=== PATIENT | female | born 1995 | race Caucasian/White ===

== ENCOUNTER 2024-08-25 22:09 | Emergency (ER) | payer SELFPAY ==
[2024-08-25 22:13] VITALS: BP 117/67
[2024-08-25 22:40] LABS: % Basophils 0.3 % (0-2); % Eosinophils 0.7 % (0-6); % Immature Granulocytes 0.2 % (0-0.5); % Monocytes 7.8 % (1.7-9.3); Absolute Eosinophils 0.1 10^3/uL (0-0.7); Absolute Monocytes 0.9 10^3/uL (0.1-0.6); Absolute Neutrophils 7.9 10^3/uL (1.4-6.5); Hematocrit 36.3 % (37.0-47.0); Hemoglobin 12.7 g/dL (12.0-16.0); Mean Corpuscular Hgb 31.8 pg (27.0-31.0); Mean Corpuscular Volume 90.8 fL (81.0-99.0); Mean Platelet Volume 8.9 fL (7.4-10.4); Nucleated Red Blood Cells % 0 %; Platelet Count 306 10^3/uL (130-400); Red Cell Dist. Width 11.8 % (11.5-14.5)
--- NOTE | 2024-08-25 23:04 | ED.GENMED ---
History of Present Illness
General
Chief Complaint: Problems
Source: patient
Exam Limitations: none
Time Seen by Provider: 08/25/24 22:45
Nursing documentation reviewed up to this point in time: agreed with
History of Present Illness
History of Present Illness:
Patient, G1, P0, approximately 7 weeks via last menstrual cycle, presents to ED secondary to vaginal bleeding noted during urination, shortly prior to arrival. Denies trauma. Denies fever or chills. Denies abdominal pain. Denies nausea
or vomiting. Patient appointment with NURSE RN BSN physician next month. Patient otherwise is healthy without any significant medical history. Denies recent illness.
Review of Systems
Review of Systems
Allergies reviewed?: Yes
All Other Systems: ROS reviewed and negative except as documented in HPI and ROS
Constitutional: Reports no symptoms; Denies fever
Respiratory: Reports no symptoms; Denies trouble breathing
Cardiac: Reports no symptoms
ABD/GI: Reports no symptoms; Denies abdominal pain, vomiting or diarrhea
: Reports bleeding
Musculoskeletal: Reports no symptoms
Skin: Reports no symptoms
Neurological: Reports no symptoms; Denies weakness
Phy Exam
Physical Exam
Physical Exam:
Physical Exam
General: no apparent distress, not acutely ill. afebrile
Head: nc/at. eomi
Neck: supple. normal range of motion.
Abdomen: normal bowel sounds. not tender.
Neuro: alert and oriented. no focal neurological deficits
Skin: no rash
Psychiatric: well kept. interactive and cooperative
Extremities: no edema. no calf tenderness.
Course
Orders/Labs/Results
Orders:
Orders
08/25/24 22:30
Complete Blood Count/With Diff Urgent
Comprehensive Metabolic Panel Urgent
HCG, Beta Quantitative [Beta HCG Quantitative] Urgent
Is this a screen?: No
08/25/24 23:07
US 1st Trimester Urgent
Comment:
Reason For Exam: vaginal bleeding
08/26/24 01:06
Urine Microscopic Reflex Cult Urgent
Urine Reflex Culture from UA [Urinalysis Reflex To Culture] Urgent
Date Specimen was Collected: 08/26/24
Time Specimen was Collected: 01:04
Urine Culture Urgent
RUTHIE Source: U
Specimen Description:
Date Specimen was Collected: 08/26/24
Time Specimen was Collected: 01:04
08/26/24 01:23
Blood Group&Type Urgent
08/26/24 01:36
ABO2 Urgent
BBK Wristband Number:
Associate notified that ABO2 has been ordered: [id number]
Date: 08/26/24
Time: 01:32
Flash Welder ID: [id number]
Abnormal Lab Results
08/25/24 08/26/24
22:30 01:06
WBC 12.0 H 10^3/uL
(4.8-10.8)
RBC 4.00 L 10^6/uL
(4.20-5.40)
Hct 36.3 L %
(37.0-47.0)
MCH 31.8 H pg
(27.0-31.0)
Absolute Neuts (auto) 7.9 H 10^3/uL
(1.4-6.5)
Absolute Monos (auto) 0.9 H 10^3/uL
(0.1-0.6)
Glucose 104 H mg/dl
(70-99)
Ur Occult Blood Reflex 3+ A
(Negative)
Urine RBC 3-6 A /HPF
(0-2)
Urine Bacteria (Reflex) Moderate A
(Negative)
08/25/24 22:30
08/25/24 22:54
Vital Signs
Initial and Last Documented VS:
Initial Vital Signs
Temp Pulse Resp BP Pulse Ox
97.4 F 71 16 117/67 100
08/25/24 22:13 08/25/24 22:13 08/25/24 22:13 08/25/24 22:13 08/25/24 22:13
Last Documented Vital Signs
Temp Pulse Resp BP Pulse Ox
97.4 F 61 18 109/56 99
08/25/24 22:13 08/26/24 02:25 08/26/24 02:25 08/26/24 00:41 08/26/24 02:25
Information
Weeks gestation: Weeks: (6)
Location: Location: ([facility])
MDM/Problems Addressed
MDM/Problems Addressed:
History and exam consistent with threatened miscarriage. H&H stable. O+ blood type, not requiring RhoGAM treatment. Patient will be advised to make an appointment with her NURSE RN BSN physician for an outpatient follow-up. Advised to return to ED
with worsening symptoms. Patient was able to go to the bathroom in ED during observation, without any further bleeding episode.
*Critical Care Note
Total Time (30-74mins, 75-104mins- exclusive of procedures): Not Applicable
ED Attending Note
-
Portions of this chart may have been created with voice recognition software.� Occasional wrong word or��sound alike� substitutions may have occurred due to the inherent limitations of voice recognition software.
Discharge Plan
Departure
Patient Disposition: Home (Routine Discharge)
Date of Disposition: 08/26/24
Time of Disposition: 02:19
Patient with high blood pressure during this ER visit?: No
Condition: Good
Discharge Problem:
Threatened miscarriage
Instructions: Threatened Miscarriage (DC)
Referrals:
Declan Greenwood MD [Family Provider] -
Activity Restrictions/Additional Instructions:
As discussed, please follow-up with your primary care physician and/or NURSE RN [facility] physician for reevaluation. Please return to ED immediately with worsening bleeding, especially when associated with pain/dizziness/weakness/shortness of breath.
Interventions
Interventions:
*Risk Screen - Suicide Last Done: 08/26/24 02:25
*General Assessment Last Done: 08/25/24 22:13
*Neglect/Abuse Screening Last Done: 08/26/24 02:25
ED- Fall Risk Assessment Last Done: 08/26/24 00:44
*ED COVID-19 Vaccine History Last Done: 08/25/24 22:13
*Nursing Disposition Last Done: 08/26/24 02:25
ED-Female Genitourinary Assessment Last Done: 08/26/24 00:44
Discharge Date and Time
Discharge Date/Time: 08/26/24 02:27
Print Language: OMANI
[2024-08-25 23:09] LABS: ALT (SGPT) 17 U/L (0-35); AST (SGOT) 20 U/L (14-36); Albumin 4.3 g/dl (3.5-5.0); Alkaline Phosphatase 56 U/L (38-126); Blood Urea Nitrogen 11 mg/dl (7-17); Calcium 9.3 mg/dl (8.4-10.2); Carbon Dioxide 22 mmol/L (22-30); Chloride 104 mmol/L (98-107); Glucose 104 mg/dl (70-99); Potassium 3.7 mmol/L (3.5-5.1); Sodium 136 mmol/L (135-145); Total Bilirubin 0.2 mg/dl (0.2-1.3); Total Protein 6.4 g/dl (6.3-8.2); eGFR > 60.00
[2024-08-26 00:41] VITALS: BP 109/56
[2024-08-26 01:22] LABS: Urine Albumin Negative (Neg - Trace); Urine Bilirubin Negative (Negative); Urine Character Clear (Clear); Urine Color Yellow; Urine Glucose Negative (Negative); Urine Ketone Negative (Negative); Urine Leukocyte Negative (Negative); Urine Nitrite Negative (Negative); Urine Occult Blood 3+ (Negative); Urine Urobilinogen Negative (Neg - 1+)
[2024-08-26 01:58] LABS: Urine Amorphous Seen; Urine Granular Cast 0-2 /LPF (0); Urine Squamous Cell 16-20 /LPF (Few)
[2024-08-26 02:00] LABS: Urine Bacteria Moderate (Negative); Urine White Cell 0-2 /HPF (0-5)
== END 2024-08-26 02:27 | disposition home or self-care (01) ==
LOC: EMR 22:09
PROVIDERS: Emergency Medicine; EMERGENCY PHYSICIAN Emergency Medicine; FAMILY PHYSICIAN Internal Medicine
DX: O20.0 Threatened abortion (principal); Z3A.01 Less than 8 weeks gestation of pregnancy
CPT/HCPCS: 99284; 76801; 80053; 81003; 81015; 84702; 85025; 86900; 86901; 87086

== ENCOUNTER → 2024-11-02 11:20 | Outpatient (REF) | payer OTHER, SELFPAY | LOC: RAD 11:20 | PROVIDERS: ATTENDING PHYSICIAN Student in an Organized Health Care Education/Training Program | DX: O46.92 Antepartum hemorrhage, unspecified, second trimester (principal) | CPT/HCPCS: 76815 ==

== ENCOUNTER → 2024-11-29 06:59 | Outpatient (REF) | payer OTHER, SELFPAY | LOC: PNTC 06:59 | PROVIDERS: ATTENDING PHYSICIAN Student in an Organized Health Care Education/Training Program | DX: Z34.92 Encounter for supervision of normal pregnancy, unspecified, second trimester (principal) | CPT/HCPCS: 76805; 76817 ==

== ENCOUNTER → 2024-12-27 08:01 | Outpatient (REF) | payer OTHER, SELFPAY | LOC: PNTC 08:01 | PROVIDERS: ATTENDING PHYSICIAN Student in an Organized Health Care Education/Training Program | DX: O44.40 Low lying placenta NOS or without hemorrhage, unspecified trimester (principal) | CPT/HCPCS: 76816; 76817 ==

== ENCOUNTER → 2025-02-10 07:37 | Outpatient (REF) | payer OTHER, SELFPAY | LOC: PNTC 07:37 | PROVIDERS: ATTENDING PHYSICIAN Student in an Organized Health Care Education/Training Program | DX: O44.40 Low lying placenta NOS or without hemorrhage, unspecified trimester (principal) | CPT/HCPCS: 76816; 76817 ==

== ENCOUNTER 2025-03-02 07:57 | Observation (INO) | payer MEDICARE, SELFPAY ==
[2025-03-02 08:06] VITALS: BP 114/77; BMI 36.3
[2025-03-02 08:40] LABS: Hematocrit 34.1 % (37.0-47.0); Hemoglobin 11.9 g/dL (12.0-16.0); Mean Corp Hgb Conc. 34.9 g/dL (33.0-37.0); Mean Corpuscular Volume 90.2 fL (81.0-99.0); Platelet Count 273 10^3/uL (130-400); Red Cell Dist. Width 12.3 % (11.5-14.5)
[2025-03-02 08:50] LABS: INR 0.97; PT 13.4 Sec (11.4-14.6)
[2025-03-02 08:51] LABS: APTT 26.3 Sec (23.4-35.0); Fibrinogen 541 MG/DL (199-459)
[2025-03-02] MEDS: CELESTONE SOLUSPAN 2 MG IM (12:05)
--- NOTE | 2025-03-02 14:52 | CON.NEO ---
Consultation
-
Date/Time Consultation Requested: 03/02/2025 @ 1400
Date/Time Consultation Performed: 03/02/2025 @ 1410
Requesting Provider: Dr. Simran Alvarado
Performing Provider: Dr. Margaux Blakely
Reason for Consultation: Possible delivery
Consultation - Neonatology
Maternal Labs
Blood Type: O Positive
Antibody Screen: Negative
RPR: Nonreactive
Rubella: Immune
Hep B S Ag: Negative
Hep C: Negative
HIV: Nonreactive
Group B Strep: Negative
Chlamydia/GC: Unavailable
Consult
Asked to consult due to possible delivery.
Mother is Claudia Tijerina, 20 yo G1, P0. Mother presented with vaginal bleeding.
History of placenta previa, now with low lying placenta. Also with marginal cord insertion.
Concern for abruption - OB reports this has been ruled out. Mother with continued contractions, with cervix closed.
Mother received betamethasone on 03/02 at 1207.
Mother, father and paternal parents were in the room for the consultation.
Mother provided verbal consent to continue consult with everyone in the room.
Points discussed at consult:
- Management at delivery including the possibility of CPAP/intubation/surfactant discussed
- Respiratory: RDS possibility with possibility of worsening for 24-48 hrs, management including CPAP/surfactant/ventilator support may be required
- Nutrition: Hypoglycemia, need for IV fluids, gradual feed advance, Gavage feeding, importance of colostrum feeding, initiation of expression of colostrum within 3-4 hours, availability of donor milk, safety fo donor milk etc. were discussed.
Mother plans on and provided verbal consent for donor milk.
- Procedures: Intubation, CPAP, IV placement, blood tests, gavage feedings were discussed
- [facility]: possibility of PDA not discussed in detail at this time
- AUTOMATION TENDER: Discussed apnea and need for monitoring
- Jaundice possibility and need for phototherapy discussed
- Family Centered Care: Discussed FCC with emphasis on parental participation during sign off and during management rounds and is encouraged. Availability of storm eyes camera also discussed
Mom and Dad were given the opportunity to ask questions throughout and open invitation to call if any questions come as they absorb all the information given so far.
Face to Face Time
Total Llye-vo-Pkqd Time (in Minutes): 30
[2025-03-02 18:57] LABS: Urine Character Clear (Clear)
[2025-03-02 19:18] LABS: Urine Red Blood Cell 0-2 /HPF (0-2); Urine White Cell 0-2 /HPF (0-5)
[2025-03-03] MEDS: LR 1000 IV (01:00)
[2025-03-03] MEDS: COLACE 100 MG PO (10:52)
[2025-03-03] MEDS: CELESTONE SOLUSPAN 2 MG IM (12:36)
[2025-03-04] MEDS: LR 1000 IV (03:10)
== END 2025-03-04 11:00 | disposition home or self-care (01) ==
LOC: LDRP 07:57
PROVIDERS: Student in an Organized Health Care Education/Training Program; ADMITTING PHYSICIAN Obstetrics & Gynecology; CONSULT PHYSICIAN Pediatrics Neonatal-Perinatal Medicine
DX: O44.53 Low lying placenta with hemorrhage, third trimester (principal); Z3A.34 34 weeks gestation of pregnancy
CPT/HCPCS: 76815; 81003; 81015; 85027; 85384; 85460; 85610; 85730; 86850; 86900; 86901; G0378

== ENCOUNTER 2025-04-14 19:53 | Inpatient (IN) | payer MEDICARE, SELFPAY ==
[2025-04-14 20:02] VITALS: BMI 40.8
[2025-04-14 20:55] VITALS: BP 120/74
[2025-04-14 20:56] LABS: Hematocrit 33.3 % (37.0-47.0); Hemoglobin 11.4 g/dL (12.0-16.0); Mean Corp Hgb Conc. 34.2 g/dL (33.0-37.0); Mean Corpuscular Volume 86.9 fL (81.0-99.0); Nucleated Red Blood Cells % 0 %; Platelet Count 245 10^3/uL (130-400); Red Cell Dist. Width 13.2 % (11.5-14.5)
[2025-04-14] MEDS: CYTOTEC 25 MICROGRAM VAG (21:12)
[2025-04-15] MEDS: LR 1000 IV ×3 (00:08→23:37)
[2025-04-15] MEDS: PITOCIN 30 UNITS/NSS 500 ML IV (09:35)
[2025-04-15] MEDS: SUBLIMAZE 100 MCG EPIDURAL (20:07)
[2025-04-15] MEDS: FENTANYL/BUPIVACAINE 100 EPIDURAL (20:08)
[2025-04-16] MEDS: TYLENOL 975 MG PO (00:37)
[2025-04-16] MEDS: BICITRA 30 ML PO (00:37)
[2025-04-16] MEDS: ANCEF 10 IV (00:53)
[2025-04-16] MEDS: ZITHROMAX INFUSION 250 IV (00:55)
[2025-04-16 01:37] LABS: Cord ABG Comment CORD BLOOD
[2025-04-16 01:44] LABS: B.E. Cord ABG -6.4 mMOL/L; HCO3 Cord ABG 23.9 mmol/L; O2 Saturation % Cord ABG 31.5 %; PCO2 Cord ABG 67 mmHg; PO2 Cord ABG 10 mmHg; pH Cord ABG 7.16
[2025-04-16] MEDS: PITOCIN 30 UNITS/NSS 500 ML IV ×2 (02:16→04:43)
[2025-04-16] MEDS: PRENATAL PLUS 1 TABLET PO (08:14)
[2025-04-16] MEDS: COLACE 100 MG PO ×2 (08:15→20:25)
[2025-04-16] MEDS: TORADOL 15 MG IV ×3 (08:15→20:24)
--- NOTE | 2025-04-16 10:01 | W.PN.ANS.POP ---
Anesthesia Post Operative
- Anesthesia Post Op Note
Vital Signs Stable-See Nursing Note: Yes
Airway Patent: Yes
Adequate Pain Control: Yes
Change in Mental Status: No
Current Postoperative Nausea & Vomiting: No
Anesthesia Complications: No
General Anesthetic Recall: No
Unplanned Admission: No
Post Op Hydration Adequate: Yes
[2025-04-17] MEDS: TORADOL 15 MG IV (02:10)
[2025-04-17 03:20] LABS: Hematocrit 26.9 % (37.0-47.0); Hemoglobin 8.8 g/dL (12.0-16.0); Mean Corp Hgb Conc. 32.7 g/dL (33.0-37.0); Mean Corpuscular Volume 88.8 fL (81.0-99.0); Platelet Count 277 10^3/uL (130-400); Red Cell Dist. Width 13.9 % (11.5-14.5)
[2025-04-17] MEDS: TYLENOL 650 MG PO ×4 (06:00→23:18)
[2025-04-17] MEDS: MOTRIN 600 MG PO ×3 (08:21→20:38)
[2025-04-17] MEDS: PRENATAL PLUS 1 TABLET PO (08:22)
[2025-04-17] MEDS: COLACE 100 MG PO ×2 (08:22→20:38)
[2025-04-17] MEDS: FEOSOL 325 MG PO (09:26)
[2025-04-18] MEDS: MOTRIN 600 MG PO (02:51)
[2025-04-18] MEDS: COLACE 100 MG PO (07:43)
[2025-04-18] MEDS: FEOSOL 325 MG PO (07:44)
[2025-04-18] MEDS: TYLENOL 650 MG PO (07:44)
[2025-04-18] MEDS: PRENATAL PLUS 1 TABLET PO (07:44)
--- NOTE | 2025-04-18 09:00 | W.DS.TRANS ---
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
-
Discharge Instructions:
Discharge Diagnosis/Procedures 40wks delivered, elective induction,
epidural, primary cs
Activity No strenuous activity
Driving Restrictions As prior to admission
Bathing Restrictions OK to Shower
Instructions:
Stand-Alone Forms: LDRP Delivery
Changes to Home Medications: No
Discharge Medications:
DC Medications w/original date entered in [facility]
prenat.vits,lakesha,hai-ayhw-iodll 2 tab PO DAILY 03/02/25
acetaminophen 325 mg tablet 650 mg (2 x 325 mg) PO Q4HPRN PRN mild pain #0 tabs 04/18/25
docusate sodium 100 mg capsule 100 mg PO BID #0 caps 04/18/25
ferrous sulfate 325 mg (65 mg iron) tablet (FeroSul) 325 mg PO DAILY #0 tabs 04/18/25
ibuprofen 600 mg tablet 600 mg PO Q6HPRN PRN cramps #30 tabs 04/18/25
sennosides 8.6 mg tablet (Sakshi-maikol) 17.2 mg (2 x 8.6 mg) PO HSPRN PRN constipation #0 tabs 04/18/25
simethicone 80 mg chewable tablet 80 mg PO TIDPRN PRN flatulence #0 tabs 04/18/25
Home Medication Changes
Pending Results: No
Total time spent discharging patient (in min): 20
[2025-04-19 13:35] LABS: Syphilis/T. pallidum Ab Reflex Negative (Negative)
== END 2025-04-18 11:03 | disposition home or self-care (01) | DRG 787 ==
LOC: LDRP 19:53
PROVIDERS: Obstetrics & Gynecology; ADMITTING PHYSICIAN Student in an Organized Health Care Education/Training Program
PROC: 3E0P7VZ Introduction of Hormone into Female Reproductive, Via Natural or Artificial Opening (ICD-10-PCS; 2025-04-14)
PROC: 6A550ZT Pheresis of Cord Blood Stem Cells, Single (ICD-10-PCS; 2025-04-16)
PROC: 10D00Z1 Extraction of Products of Conception, Low, Open Approach (ICD-10-PCS; 2025-04-16)
DX: O48.0 Post-term pregnancy (principal); O44.43 Low lying placenta NOS or without hemorrhage, third trimester; Z3A.40 40 weeks gestation of pregnancy; Z37.0 Single live birth; O77.0 Labor and delivery complicated by meconium in amniotic fluid; O43.123 Velamentous insertion of umbilical cord, third trimester; O99.214 Obesity complicating childbirth; O62.0 Primary inadequate contractions; O90.81 Anemia of the puerperium
CPT/HCPCS: 82803; 85025; 85027; 86780; 86850; 86900; 86901; 88307